=== PATIENT | male | born 1955 | race Two or more races ===

== ENCOUNTER → 2025-01-16 | Emergency (ER) | payer OTHER ==
[~2025-01-16] VITALS: Ht 170.2 cm; Wt 81.6 kg
[~2025-01-16] MED LIST: 0.9 % SODIUM CHLORIDE 1,000 ML IV SCH; CIPROFLOXACIN IN 5 % DEXTROSE 400 MG/200 ML PIGGYBAG IV ONE; ECOTRIN325 M1; LABETALOL HCL200 MG PO; OCTREOTIDE ACETATE 0.05MG/ML (50MCG/ML) AMPUL IV ONE; OCTREOTIDE ACETATE 1,250 MCG in 0.9 % SODIUM CHLORIDE 250 ML IV SCH; PANTOPRAZOLE SODIUM 40 MG/VIAL VIAL IV ONE; PANTOPRAZOLE SODIUM 80 MG in 0.9 % SODIUM CHLORIDE 100 ML IV SCH
[2025-01-17 00:43] LABS: BASO % 0.4 % (0.1-1.2); EOS # 0.10 (0.04-0.54); EOS % 0.6 % (0.7-7.0); LYMPH # 1.67 (1.18-3.74); LYMPH % 10.7 % (19.3-53.1); MEAN PLATELET VOLUME 10.90 fl (9.4-12.4); MONO # 0.81 (0.24-0.82); MONO % 5.2 % (4.7-12.5); NEUT # 12.87 (1.56-6.13); NEUT % 82.7 % (34.0-71.1); RED CELL DISTRIBUTION WIDTH 12.4 % (11.6-14.4)
[2025-01-17 01:14] LABS: ALT/SGPT 22.0 U/L (12-78); AST/SGOT 12.0 U/L (15-37); BILIRUBIN TOTAL 0.92 mg/dL (0.3-1.2); BUN CREA RATIO 48.0 (7.0-25.0); CREATININE SERUM 1.39 mg/dL (0.70-1.30); GFR 50.37; GLOBULINA 3.3 G/DL (2.4-3.5); GLUCOSE FASTING 149.0 mg/dL (65-100); OSMOLALITY SERUM 303.0 MOSM/KG (275-295)
[2025-01-17 02:46] LABS: BASO % 0.2 % (0.1-1.2); EOS # 0.05 (0.04-0.54); EOS % 0.4 % (0.7-7.0); LYMPH # 1.02 (1.18-3.74); LYMPH % 8.3 % (19.3-53.1); MEAN PLATELET VOLUME 10.50 fl (9.4-12.4); MONO # 0.64 (0.24-0.82); MONO % 5.2 % (4.7-12.5); NEUT # 10.49 (1.56-6.13); NEUT % 85.3 % (34.0-71.1); RED CELL DISTRIBUTION WIDTH 12.4 % (11.6-14.4)
[2025-01-17 03:11] LABS: INR 1.14
[2025-01-17 09:19] LABS: URINE APPEARANCE Clear; URINE BILIRRUBIN Negative (NEGATIVE); URINE BLOOD Negative; URINE COLOR Yellow; URINE GLUCOSE Negative (NEGATIVE); URINE KETONE Trace (NEGATIVE); URINE LEUKOCYTE Negative; URINE NITRATE Negative; URINE PROTEIN Negative (NEGATIVE); URINE UROBILINOGEN 0.2 E.U./dl
[2025-01-17 09:21] LABS: URINE BACTERIA 17.1 uL (0.0-1933)
[2025-01-17 09:23] LABS: URINE CAST 0.00 uL (0.0-1.40); URINE EPITHELIAL CELLS 0.1 uL (0.0-38.8); URINE RBC 0.5 uL (0.0-20.8); URINE WBC 1.5 uL (0.0-23.2)
== END | disposition designated cancer center or children's hospital (05) ==
LOC: ER 19:16
PROVIDERS: Preventive Medicine Public Health & General Preventive Medicine
DX: R11.10 Vomiting, unspecified (principal); I10 Essential (primary) hypertension; Z88.0 Allergy status to penicillin
CPT/HCPCS: 36415; 71046; 96365; J0744; J3490